=== PATIENT | female | born 1990 | race Caucasian/White ===

== ENCOUNTER 2016-10-08 02:26 | Emergency (ER) | payer OTHER ==
[~2016-10-08] VITALS: Ht 160 cm; Wt 50.0 kg
[~2016-10-08 02:26] MED LIST: AMOXICILLIN500 M1 PO; CEPHALEXIN500 MG PO; CLEOCIN300 MG PO; ENDOCET 5-3251 EACH PO; FLEXERIL10 MG PO; IBUPROFEN800 MG PO; IRON325 M1 PO; METHADONE1 MG/1 ML PO; METHADONE10 MG PO; MOTRIN600 MG PO; MOTRIN800 MG PO; Motrin PO; NOHOMEMEDS; Percocet 5/325,Endoc PO; TYLENOL WITH C1 EACH PO; ULTRAM50 MG PO; methadone
[2016-10-08 03:13] LABS: HEMATOCRIT 36.7 % (36.0-46.0); MCH 32.7 PG (29.0-34.0); MCHC 34.6 G/DL (30.0-36.0); MCV 94.6 FL (83-99); MEAN PLAT.VOLUME 11.7 uM^3 (9.5-12.4); PLATELET COUNT 117 K/uL (156-360); RBC DIS.WIDTH-CV 13.2 % (11.8-14.6); RBC DIS.WIDTH-SD 45.6 % (39-53); RED BLOOD COUNT 3.88 M/uL (3.80-5.20); WHITE BLOOD COUNT 14.2 K/uL (4.1-10.2)
[2016-10-08 03:19] LABS: AMPHETAMINE NEGATIVE (500 ng/mL); BARBITURATES NEGATIVE (200 ng/mL); BENZODIAZEPINES PRESUMPTIVE POSITIVE (150 ng/mL); COCAINE NEGATIVE (150 ng/mL); INTERNAL CONTROLS VALID? YES; METHADONE NEGATIVE (200 ng/mL); METHAMPHETAMINE NEGATIVE (500 ng/mL); OPIATES (MORPHINE) NEGATIVE (100 ng/mL); OXYCODONE NEGATIVE (100 ng/mL); PHENCYCLIDINE NEGATIVE (25 ng/mL); PROPOXYPHENE NEGATIVE (300 ng/mL); THC CANNABINOIDS NEGATIVE (50 ng/mL); TRICYCLIC ANTIDEPRESSANTS NEGATIVE (300 ng/mL)
[2016-10-08 03:20] LABS: ADD MEDTOX COMMENT Y
[2016-10-08 03:24] LABS: CHLORIDE 104 mEq/L (99-109); POTASSIUM 3.1 mEq/L (3.7-5.4); SODIUM 137 mEq/L (136-147)
[2016-10-08 03:26] LABS: GLUCOSE 96 mg/dL (70-99)
[2016-10-08 03:27] LABS: ANION GAP 14 MEQ/L (2-14)
[2016-10-08 03:29] LABS: SERUM ETHYL ALCOHOL 42 mg/dL
[2016-10-08 03:30] LABS: GFR ESTIMATE (CALCULATED) > 59 mL/min/
[2016-10-08 03:32] LABS: UREA NITROGEN (BUN) 11 mg/dL (9-23)
[2016-10-08 03:33] LABS: SALICYLATE < 5.0 MG/DL (15-30)
[2016-10-08 03:40] LABS: QUANTITATIVE HCG < 4.0 MIU/ML
[2016-10-08 03:53] LABS: BENZODIAZEPINES, URINE SCREEN POSITIVE (200 ng/mL)
[2016-10-08] MEDS ORDERED: NARCAN4 MG NS (05:21)
[2016-10-08 06:11] VITALS: BP 95/60
== END 2016-10-08 06:17 | disposition home or self-care (01) ==
LOC: EME 02:26
PROVIDERS: Emergency Medicine
DX: T40.601A Poisoning by unspecified narcotics, accidental (unintentional), initial encounter (principal); E87.6 Hypokalemia; F11.10 Opioid abuse, uncomplicated; F17.200 Nicotine dependence, unspecified, uncomplicated
CPT/HCPCS: 71010; 80048; 84702; 84999; 85027; 93005; 99281; 99285; G0480; J2310; J7030

== ENCOUNTER 2016-11-22 00:50 | Emergency (ER) | payer SELFPAY ==
[~2016-11-22] VITALS: Ht 160 cm; Wt 51.0 kg
[~2016-11-22 00:50] MED LIST changes: +NARCAN4 MG NS
[2016-11-22] MEDS ORDERED: NARCAN4 MG NS (02:21)
[2016-11-22 06:09] VITALS: BP 101/67
== END 2016-11-22 06:11 | disposition home or self-care (01) ==
LOC: EME → EDBD 00:50 → EME 06:11
DX: T40.1X1A Poisoning by heroin, accidental (unintentional), initial encounter (principal); R06.89 Other abnormalities of breathing; R23.0 Cyanosis; R40.0 Somnolence; F11.10 Opioid abuse, uncomplicated; F17.200 Nicotine dependence, unspecified, uncomplicated
CPT/HCPCS: 99281; 99284; J2310

== ENCOUNTER 2016-12-01 00:57 | Emergency (ER) | payer OTHER ==
[~2016-12-01] VITALS: Ht 167.6 cm; Wt 54.0 kg
[2016-12-01 04:37] VITALS: BP 90/57
== END 2016-12-01 04:39 | disposition home or self-care (01) ==
LOC: EME → EDBD 00:57 → EME 00:57
DX: T40.1X1A Poisoning by heroin, accidental (unintentional), initial encounter (principal); F17.200 Nicotine dependence, unspecified, uncomplicated
CPT/HCPCS: 99281; 99284